=== PATIENT | female | born 1975 | race Caucasian/White ===

== ENCOUNTER 2023-11-03 19:55 | Emergency (ER) | payer MEDICAID ==
[~2023-11-03] VITALS: Ht 152.4 cm; Wt 83.0 kg
[2023-11-03 20:02] VITALS: O2SAT 99
[2023-11-04 00:26] VITALS: BP 135/75; PULSE 71; RESP 18; TEMP 98
== END 2023-11-04 00:27 | disposition home or self-care (01) ==
LOC: ER 19:55
DX: M94.0 Chondrocostal junction syndrome [Tietze] (principal)
CPT/HCPCS: 71045; 99283

== ENCOUNTER 2025-06-17 18:01 | Emergency (ER) | payer OTHER, MEDICAID ==
[~2025-06-17] VITALS: Ht 154.9 cm; Wt 82.0 kg
[2025-06-17 18:13] VITALS: O2SAT 99
[2025-06-17] MEDS: IBUPROFEN 600MG TABLET PO ONE (18:48)
[2025-06-17] MEDS: LIDOCAINE 5% PATCH TOP SCH (18:48)
[2025-06-17 20:15] VITALS: BP 142/63; PULSE 61; RESP 15; TEMP 37.2; O2SAT 99
== END 2025-06-17 20:25 | disposition home or self-care (01) ==
LOC: ER 18:01
DX: R07.89 Other chest pain (principal); R10.20 Pelvic and perineal pain unspecified side; Z98.82 Breast implant status; V89.2XXA Person injured in unspecified motor-vehicle accident, traffic, initial encounter; Y92.410 Unspecified street and highway as the place of occurrence of the external cause; Y93.89 Activity, other specified; Y99.8 Other external cause status
CPT/HCPCS: 71045; 72170; 73090; 99284